=== PATIENT | male | born 1960 | race Caucasian/White ===

== ENCOUNTER 2023-01-08 05:30 | Day surgery (SDC) | payer OTHER ==
[2023-01-06 07:48] VITALS: BMI 32.1
[2023-01-08 09:29] VITALS: TEMP 97.1
[2023-01-08 10:04] VITALS: BP 142/92; PULSE 72; RESP 17
== END 2023-01-08 10:20 | disposition home or self-care (01) ==
LOC: JASU-ENDO 05:30
PROVIDERS: ATTEND Internal Medicine Gastroenterology
PROC: 0DJD8ZZ Inspection of Lower Intestinal Tract, Via Natural or Artificial Opening Endoscopic (ICD-10-PCS; principal; 2023-01-08 10:00)
DX: Z12.11 Encounter for screening for malignant neoplasm of colon (principal); K64.8 Other hemorrhoids; K57.30 Diverticulosis of large intestine without perforation or abscess without bleeding; Z83.71 Family history of colonic polyps